=== PATIENT | female | born 1960 | race Caucasian/White ===

== ENCOUNTER 2022-01-16 15:20 | Emergency (ER) | payer OTHER, SELFPAY ==
[2022-01-16 15:45] VITALS: BP 179/81; PULSE 64; RESP 14; TEMP 36.6; O2SAT 99; BMI 24.4
[2022-01-16 16:02] LABS: Appearance Urine CLEAR; Color Urine YELLOW; Glucose Urine UA NEG (NEG); Leukocyte Esterase Urine NEG (NEG); Nitrite Urine NEG (NEG); PH 5.5 (5.0-8.0); UACC Culture Trigger NO; Urine Blood TRACE (NEG); Urine Ketones NEG (NEG); Urine Protein NEG (NEG-TRACE)
[2022-01-16 16:11] LABS: MANUAL DIFF FLAG NO
[2022-01-16 16:13] LABS: Basophils Absolute Auto 0.1 X10*3/uL (0.0-0.2); Eosinophils Absolute Auto 0.2 X10*3/uL (0.0-0.4); Eosinophils Percent Auto 1.8 % (0-4); Hematocrit 45.3 % (37.0-47.0); Hemoglobin 15.1 g/dl (12.0-16.0); Imm Gran Abs Auto 0.02 X10*3/uL (0.00-0.03); Imm Gran Pct Auto 0.2 % (0.0-0.4); Lymphocytes Absolute Auto 3.1 X10*3/uL (1.2-4.9); Lymphocytes Percent Auto 32.9 % (20-40); Mean Corpuscular HGB Conc 33.3 g/dl (31.0-35.0); Mean Corpuscular Hemoglobin 28.8 pg (27.0-33.0); Mean Corpuscular Volume 86.3 fL (80.0-98.0); Mean Platelet Volume 9.9 fL (9.4-12.3); Monocytes Absolute Auto 0.7 X10*3/uL (0.1-1.2); Monocytes Percent Auto 7.2 % (2-11); Neutrophils Absolute Auto 5.3 x10*3/uL (2.0-8.3); Neutrophils Percent Auto 56.9 % (45-73); Platelet Count 286 X10*3/uL (160-400); Red Blood Count 5.25 X10*6/uL (4.20-5.50); Red Cell Distribution Width 13.2 % (11.0-16.0); White Blood Count 9.3 X10*3/uL (4.8-10.8)
[2022-01-16 16:28] LABS: Anion Gap 16 (12-20); Blood Urea Nitrogen 33 mg/dL (9-16); Calcium 9.6 mg/dL (8.4-10.2); Carbon Dioxide 22 mmol/L (22-29); Chloride 107 mmol/L (96-108); Estimated Glomerular Filt Rate 48; Glucose Random 86 mg/dL (60-115); Potassium 4.1 mmol/L (3.3-5.1); Sodium 141 mmol/L (135-145)
[2022-01-16 16:30] LABS: RBC Urine 0-2 /HPF (0); Squamous Epithelial Cell Urine 2+ /LPF; Urine Talc Crystals TRACE /LPF; WBC Urine 0-2 /HPF (0-4)
[2022-01-16 17:59] LABS: Alanine Aminotransferase 18 U/L (0-31); Albumin Level 4.8 g/dL (3.5-5.0); Alkaline Phosphatase 111 U/L (39-117); Aspartate Amino Transferase 19 U/L (5-31); Bilirubin Direct 0.3 mg/dL (0.0-0.5); Bilirubin Total 0.7 mg/dL (0.0-1.0); Lipase 51 U/L (8-78)
[2022-01-16 18:16] VITALS: BP 149/74; PULSE 64; RESP 16; TEMP 36; O2SAT 100
[2022-01-16] MEDS: Ondansetron ODT 4 MG TAB.RAPDIS TRANSLINGU (18:41)
--- NOTE | 2022-01-16 18:45 | ED_ITS ---
HPI - Nausea/Vomiting/Diarrhea General Chief complaint: Nausea/Vomiting/Diarrhea Stated complaint: abdominal pain; vomiting Time Seen by Provider: 01/16/22 17:27 Source: patient Mode of arrival: ambulatory History of Present Illness HPI Narrative: 61-year-old female without significant past medical history presents for concerns regarding nausea, vomiting as well as multiple episodes of diarrhea since having coffee with [employer] on Tuesday morning. She denies any fever but states she has had some chills and has taken 3 COVID-19 test which have all been negative. Patient is concerned because she has had limited oral intake. Related Data Previous Rx's Medication Instructions Recorded ondansetron 4 mg disintegrating 4 mg PO Q8H PRN nausea and 01/16/22 tablet vomiting #7 tabs Allergies Allergy/AdvReac Type Severity Reaction Status Date / Time Unable to Assess Allergy Verified 01/16/22 17:28 Review of Systems Review of Systems: Pertinent positives and negatives as stated in HPI 10 point review of systems is otherwise negative. PMFSH Past Medical History Source: nursing notes reviewed Social History Social History Advance Directives: No Advance Directives Information Provided: No Physical Exam Vital Signs: Vital Signs: Last Vital Signs Temp 96.8 F 01/16/22 18:16 Pulse 64 01/16/22 18:16 Resp 16 01/16/22 18:16 BP 149/74 H 01/16/22 18:16 Pulse Ox 100 01/16/22 18:16 O2 Del Method 01/16/22 18:16 BMI result Body Mass Index 24.4 VITAL SIGNS: Reviewed. GENERAL: Well developed, well nourished, in no acute distress. HEAD: Normocephalic/atraumatic EYES: PERRLA, EOMI EARS: Ext canals without abnormality OROPHARYNX: no oral lesions noted, posterior pharynx clear, moist mucosa NECK: Supple, no adenopathy LUNGS: Normal breath sounds. No adventitious sounds or accessory muscle use. SpO2<100> CARDIOVASCULAR: Regular rate and rhythm without noted murmurs ABDOMEN: Soft, non-tender, non-distended with bowel sounds. MUSCULOSKELETAL: No tenderness, deformities, or effusions noted on gross inspection. EXTREMITIES: No cyanosis, clubbing or edema. SKIN: Inspection of the skin reveals no rashes NEUROLOGIC: Alert and oriented x 4. Strength and sensation to light touch were grossly intact x 4. Course Course Course Narrative: 61-year-old female with history and clinical presentation consistent with gastroenteritis likely viral etiology. Review of all investigations without significant findings other than elevated BUN. On review of all investigations there are no acute findings, to include negative COVID-19 test, patient did tolerate crackers and liquids and is otherwise stable for discharge home with instructions to use the antinausea medication and increase her water intake. She is otherwise discharged home in stable condition. MDM - Nausea/Vomiting/Diarrhea Lab Data Result diagrams: 01/16/22 16:03 01/16/22 16:03 Labs: Lab Results 01/16/22 01/16/22 01/16/22 Range/Units 15:56 16:03 16:03 WBC 9.3 (4.8-10.8) X10*3/uL RBC 5.25 (4.20-5.50) X10*6/uL Hgb 15.1 (12.0-16.0) g/dl Hct 45.3 (37.0-47.0) % MCV 86.3 (80.0-98.0) fL MCH 28.8 (27.0-33.0) pg MCHC 33.3 (31.0-35.0) g/dl RDW 13.2 (11.0-16.0) % Plt Count 286 (160-400) X10*3/uL MPV 9.9 (9.4-12.3) fL Immature Gran % (Auto) 0.2 (0.0-0.4) % Neut % (Auto) 56.9 (45-73) % Lymph % (Auto) 32.9 (20-40) % [place] % (Auto) 7.2 (2-11) % Eos % (Auto) 1.8 (0-4) % Baso % (Auto) 1.0 (0-2) % Lymph # (Auto) 3.1 (1.2-4.9) X10*3/uL [place] # (Auto) 0.7 (0.1-1.2) X10*3/uL Eos # (Auto) 0.2 (0.0-0.4) X10*3/uL Baso # (Auto) 0.1 (0.0-0.2) X10*3/uL Abs Immat Gran (auto) 0.02 (0.00-0.03) X10*3/uL Absolute Neuts (auto) 5.3 (2.0-8.3) x10*3/uL Absolute Nucleated RBC 0.000 (0.0-0.012) X10*3/uL Nucleated RBC % (auto) 0.0 (0.0-0.2) /100WBC Sodium 141 (135-145) mmol/L Potassium 4.1 (3.3-5.1) mmol/L Chloride 107 (96-108) mmol/L Carbon Dioxide 22 (22-29) mmol/L Anion Gap 16 (12-20) BUN 33 H (9-16) mg/dL Creatinine 1.15 (0.5-1.4) mg/dL Estim Creat Clear Calc 41.0 Estimated GFR 48 Random Glucose 86 (60-115) mg/dL Calcium 9.6 (8.4-10.2) mg/dL Total Bilirubin 0.7 (0.0-1.0) mg/dL Direct Bilirubin 0.3 (0.0-0.5) mg/dL AST 19 (5-31) U/L ALT 18 (0-31) U/L Alkaline Phosphatase 111 (39-117) U/L Total Protein 8.0 (6.5-8.0) g/dL Albumin 4.8 (3.5-5.0) g/dL Lipase 51 (8-78) U/L Urine Color YELLOW Urine Appearance CLEAR Urine pH 5.5 (5.0-8.0) Ur Specific [place] 1.020 (1.005-1.025) Urine Protein NEG (NEG-TRACE) MG/DL Urine Glucose (UA) NEG (NEG) MG/DL Urine Ketones NEG (NEG) MG/DL Urine Blood TRACE (NEG) Urine Nitrite NEG (NEG) Ur Leukocyte Esterase NEG (NEG) Urine RBC 0-2 (0) /HPF Urine WBC 0-2 (0-4) /HPF Ur Squamous Epith Cells 2+ /LPF Talc Crystals TRACE /LPF Urine Bacteria NONE /LPF COVID-19 ([facility]) (Negative) COVID-19 Clin Com 01/16/22 Range/Units 18:42 WBC (4.8-10.8) X10*3/uL RBC (4.20-5.50) X10*6/uL Hgb (12.0-16.0) g/dl Hct (37.0-47.0) % MCV (80.0-98.0) fL MCH (27.0-33.0) pg MCHC (31.0-35.0) g/dl RDW (11.0-16.0) % Plt Count (160-400) X10*3/uL MPV (9.4-12.3) fL Immature Gran % (Auto) (0.0-0.4) % Neut % (Auto) (45-73) % Lymph % (Auto) (20-40) % [place] % (Auto) (2-11) % Eos % (Auto) (0-4) % Baso % (Auto) (0-2) % Lymph # (Auto) (1.2-4.9) X10*3/uL [place] # (Auto) (0.1-1.2) X10*3/uL Eos # (Auto) (0.0-0.4) X10*3/uL Baso # (Auto) (0.0-0.2) X10*3/uL Abs Immat Gran (auto) (0.00-0.03) X10*3/uL Absolute Neuts (auto) (2.0-8.3) x10*3/uL Absolute Nucleated RBC (0.0-0.012) X10*3/uL Nucleated RBC % (auto) (0.0-0.2) /100WBC Sodium (135-145) mmol/L Potassium (3.3-5.1) mmol/L Chloride (96-108) mmol/L Carbon Dioxide (22-29) mmol/L Anion Gap (12-20) BUN (9-16) mg/dL Creatinine (0.5-1.4) mg/dL Estim Creat Clear Calc Estimated GFR Random Glucose (60-115) mg/dL Calcium (8.4-10.2) mg/dL Total Bilirubin (0.0-1.0) mg/dL Direct Bilirubin (0.0-0.5) mg/dL AST (5-31) U/L ALT (0-31) U/L Alkaline Phosphatase (39-117) U/L Total Protein (6.5-8.0) g/dL Albumin (3.5-5.0) g/dL Lipase (8-78) U/L Urine Color Urine Appearance Urine pH (5.0-8.0) Ur Specific [place] (1.005-1.025) Urine Protein (NEG-TRACE) MG/DL Urine Glucose (UA) (NEG) MG/DL Urine Ketones (NEG) MG/DL Urine Blood (NEG) Urine Nitrite (NEG) Ur Leukocyte Esterase (NEG) Urine RBC (0) /HPF Urine WBC (0-4) /HPF Ur Squamous Epith Cells /LPF Talc Crystals /LPF Urine Bacteria /LPF COVID-19 ([facility]) Negative (Negative) COVID-19 Clin Com See Note Discharge Plan Discharge Clinical Impression: Gastroenteritis, Food poisoning Patient Disposition: Home, Self-Care Instructions: Gastroenteritis (ED), Food Poisoning (ED), Nutrition Tips for Relief of Diarrhea (ED) Additional Instructions: 1. You have been sent home with medication that will control your nausea and you should take the opportunity to eat bland food, but more importantly drink plenty of water. 2. You have been provided with information regarding foods that can help you c ontrol your diarrhea. 3. Follow-up with primary care provider in next 2-3 days. Return to the ER for any worsening symptoms. Prescriptions: New ondansetron 4 mg tablet,disintegrating 4 mg PO Q8H PRN (Reason: nausea and vomiting) Qty: 7 0RF Referrals: Staci Chapman MD [Primary Care Provider] -
[2022-01-16 19:02] LABS: COVID-19 Test Negative (Negative); IDNOW Serial# 55D5AD1C
== END 2022-01-16 19:38 | disposition home or self-care (01) ==
PROVIDERS: Physician Assistant Medical; Emergency Provider Student in an Organized Health Care Education/Training Program; PCP Internal Medicine
DX: A05.9 Bacterial foodborne intoxication, unspecified (principal); Z20.822 Contact with and (suspected) exposure to COVID-19
CPT/HCPCS: 36415; 80048; 80076; 81001; 81003; 83690; 85025; 87635; 99283; 99284

== ENCOUNTER 2022-05-16 12:33 | Emergency (ER) | payer OTHER, SELFPAY ==
--- NOTE | ~2022-05-16 | XR_ITS ---
EXAMINATION: XR CHEST CLINICAL INFORMATION: Cough, chest discomfort with coughing COMPARISON: None TECHNIQUE: 2 views of the chest were obtained. FINDINGS: No airspace consolidation. No pleural effusion or pneumothorax. Normal cardiomediastinal silhouette. Slightly prominent pulmonary vascular markings. No evidence pulmonary edema. No acute osseous injury. 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 XR/XR chest 2V IMPRESSION: 1. No airspace consolidation or pleural effusions.
[2022-05-16 12:57] VITALS: BP 152/95; PULSE 63; RESP 18; TEMP 35.9; O2SAT 99; BMI 23.2
--- NOTE | 2022-05-16 12:57 | ED_ITS ---
HPI - URI/Sore Throat General Chief Complaint: Dental/Oral <Vania Vargas NP - Last Filed: 05/16/22 13:00> Stated Complaint: L ear pain/Sore throat/Upper chest pressure <Vania Vargas NP - Last Filed: 05/16/22 13:00> Time Seen by Provider: 05/16/22 14:03 <Vania Vargas NP - Last Filed: 05/16/22 13:00> Source: patient <MARLEE Escudero - Last Filed: 05/16/22 18:35> Mode of arrival: ambulatory <MARLEE Escudero Last Filed: 05/16/22 18:35> Limitations: no limitations <MARLEE Escudero Last Filed: 05/16/22 18:35> History of Present Illness HPI Narrative: 7-year-old female presents to ED for left ear pain, sore throat, and coughing for couple weeks. Patient denies any neck swelling, coughing up blood, drooling, change in voice, leg swelling, calf pain, chest pain inspiration, shortness of breath. <MARLEE Escudero Last Filed: 05/16/22 18:35> Related Data Home Medications: Previous Rx's Medication Instructions Recorded ondansetron 4 mg disintegrating 4 mg PO Q8H PRN nausea and 01/16/22 tablet vomiting #7 tabs amoxicillin 875 mg-potassium 1 tab PO Q12H 10 days #20 tabs 05/16/22 clavulanate 125 mg tablet naproxen 500 mg tablet 500 mg PO BID PRN pain 7 days #14 05/16/22 tabs <Vania Vargas NP - Last Filed: 05/16/22 13:00> Allergies/Adverse Reactions: Allergies Allergy/AdvReac Type Severity Reaction Status Date / Time No Known Allergies Allergy Verified 05/16/22 12:57 <Vania Vargas NP - Last Filed: 05/16/22 13:00> Review of Systems Review of Systems: Cough <MARLEE Escudero Last Filed: 05/16/22 18:35> Yes all other systems are reviewed and are negative <MARLEE Escudero Last Filed: 05/16/22 18:35> [facility] Social History Social History: Social History Advance Directives: No Advance Directives Information Provided: No <Vania Vargas NP - Last Filed: 05/16/22 13:00> Physical Exam Vital Signs: Vital Signs: Last Vital Signs Temp 96.6 F L 05/16/22 12:57 Pulse 63 05/16/22 12:57 Resp 18 05/16/22 12:57 BP 152/95 H 05/16/22 12:57 Pulse Ox 99 05/16/22 12:57 O2 Del Method 05/16/22 12:57 BMI result Body Mass Index 23.2 <Vania Vargas NP - Last Filed: 05/16/22 13:00> Vital Signs: Last Vital Signs Temp 96.6 F L 05/16/22 12:57 Pulse 63 05/16/22 12:57 Resp 18 05/16/22 12:57 BP 152/95 H 05/16/22 12:57 Pulse Ox 99 05/16/22 12:57 O2 Del Method 05/16/22 12:57 BMI result Body Mass Index 23.2 <MARLEE Escudero - Last Filed: 05/16/22 18:35> Const: General: cooperative, healthy appearing, comfortable, no acute distress, well developed, alert, awake and Physically active <MARLEE Escudero - Last Filed: 05/16/22 18:35> Orientation/consciousness: oriented to person, oriented to place, oriented to time and patient oriented x3 <MARLEE Escudero - Last Filed: 05/16/22 18:35> HEENT: Head: Yes normal to inspection, Yes No palpable skull fracture present, Yes normocephalic, Yes atraumatic and No abrasion <MARLEE Escudero Last Filed: 05/16/22 18:35> Ears: hearing grossly normal bilaterally, external ears normal, TM normal on the right, EAC's normal, mastoids normal, no periauricular adenopathy and TM abnormal erythematous on the left <MARLEE Escudero Last Filed: 05/16/22 18:35> Eyes: General: appearance normal, both eyes and all related structures <MARLEE Escudero Last Filed: 05/16/22 18:35> Neck: Neck: Yes normal visual inspection, Yes full ROM, Yes no lymphadenopathy, Yes no meningeal signs, Yes trachea midline, Yes supple, No anterior neck swelling and Yes tender <Ephraim Og, PA Last Filed: 05/16/22 18:35> Chest: Chest palpation & inspection: normal inspection of the chest and normal palpation of entire chest wall <Ephraim Og, PA Last Filed: 05/16/22 18:35> Resp: Effort & Inspection: normal respiratory effort and able to speak in complete sentences <MARLEE Escudero Last Filed: 05/16/22 18:35> Auscultation: clear to auscultation bilaterally <MARLEE Escudero Filed: 05/16/22 18:35> Cardio: Jugular venous distension: no JVD <MARLEE Escudero Last Filed: 05/16/22 18:35> Heart sounds: S1 normal heart sound present and S2 normal heart sound present <MARLEE Escudero Last Filed: 05/16/22 18:35> GI: Inspection: Yes normal to inspection and No abdominal wall ecchymosis <MARLEE Escudero Last Filed: 05/16/22 18:35> Palpation (GI): Soft to palpation, not firm, nontender, no guarding and not rigid <MARLEE Escudero Last Filed: 05/16/22 18:35> : General: No CVA tenderness and Yes no CVA tenderness <MARLEE Escudero Last Filed: 05/16/22 18:35> Back/Spine/Pelvis: Back: no CVA tenderness, No CVA tenderness and No back tenderness <MARLEE Escudero Last Filed: 05/16/22 18:35> Skin: General skin exam: no rashes or lesions noted and elasticity normal <MARLEE Escudero Last Filed: 05/16/22 18:35> Neuro: General: oriented to person, oriented to place, oriented to time, patient oriented x3, gait normal, tone normal and no meningeal signs <MARLEE Escudero Last Filed: 12/04/22 18:35> Cranial nerves: Yes CN's II-XII intact bilaterally <MARLEE Escudero - Last Filed: 05/16/22 18:35> Cognition (Neuro): normal cognition <MARLEE Escudero - Last Filed: 05/16/22 18:35> Gait exam (Neuro): Normal gait present <MARLEE Escudero - Last Filed: 05/16/22 18:35> Motor exam (neuro): 5/5 motor strength present throughout <MARLEE Escudero - Last Filed: 05/16/22 18:35> Sensory Exam: Normal double simultaneous stimulation for sensation <MARLEE Escudero - Last Filed: 05/16/22 18:35> Extrem: Other: Lower extremity negative for swelling, pitting edema, calf tenderness <MARLEE Escudero - Last Filed: 05/16/22 18:35> General: Yes normal to inspection and Yes full ROM <MARLEE Escudero - Last Filed: 05/16/22 18:35> Psych: Appearance: grossly normal, well kempt and not disheveled <MARLEE Escudero - Last Filed: 05/16/22 18:35> Course Course Course Narrative: This is a rapid medical exam. Deferred additional HPI, ROS, PE to primary provider here with sore throat, cough, ear pain, chest discomfort since March 2022. Will send testing for flu/covid/rsv, rapid strep, CXR. VSS. <Vania Vargas NP - Last Filed: 05/16/22 13:00> Reevaluation(s) Reevaluation #1: COVID, RSV, influenza strep negative. Chest x-ray normal. Will discharge with antibiotics for ear pain. Left otitis media <MARLEE Escudero - Last Filed: 05/16/22 18:35> Time: 15:17 <MARLEE Escudero - Last Filed: 05/16/22 18:35> MDM - URI/Sore Throat MDM Narrative Medical decision making narrative: Otitis media <MARLEE Escudero Last Filed: 05/16/22 18:35> Lab Data Labs: Lab Results 05/16/22 05/16/22 Range/Units 13:03 13:22 Influenza Type A (PCR) NEGATIVE (Negative) Influenza Type B (PCR) NEGATIVE (Negative) RSV RNA Qual (PCR) NEGATIVE (Negative) SARS-CoV-2 RNA (RT-PCR) NEGATIVE (Negative) S. pyogenes GrpA NELLIE Negative (Negative) <Vania Vargas NP - Last Filed: 05/16/22 13:00> Lab Results 05/16/22 05/16/22 Range/Units 13:03 13:22 Influenza Type A (PCR) NEGATIVE (Negative) Influenza Type B (PCR) NEGATIVE (Negative) RSV RNA Qual (PCR) NEGATIVE (Negative) SARS-CoV-2 RNA (RT-PCR) NEGATIVE (Negative) S. pyogenes GrpA NELLIE Negative (Negative) <MARLEE Escudero - Last Filed: 05/16/22 18:35> Discharge Plan Discharge Clinical Impression: Otitis media <Vania Vargas NP - Last Filed: 05/16/22 13:00> Patient Disposition: Home, Self-Care <Vania Vargas NP - Last Filed: 05/16/22 13:00> Instructions: Ear Infection (ED) <Vania Vargas NP - Last Filed: 05/16/22 13:00> Additional Instructions: RSV, flu, COVID, and chest x-ray normal. He will be discharged with antibiotics for infection. Please follow-up with the primary care provide. Return to ED for any neck swelling, redness, fever, chills, coughing up blood, headache, dizziness, ear drainage, ear pain worsening, blood from the ear, or any other concerning symptoms. <Vania Vargas NP - Last Filed: 05/16/22 13:00> Prescriptions: New amoxicillin-pot clavulanate 875-125 mg tablet 1 tab PO Q12H 10 Days Qty: 20 0RF naproxen 500 mg tablet 500 mg PO BID PRN (Reason: pain) 7 Days Qty: 14 0RF No Action ondansetron 4 mg tablet,disintegrating 4 mg PO Q8H PRN (Reason: nausea and vomiting) Qty: 7 0RF <Vania Vargas NP - Last Filed: 05/16/22 13:00> Stand Alone Forms: Work/School Release <Vania Vargas NP - Last Filed: 05/16/22 13:00> Interventions: ED Discharge Assessment Last Done: 05/16/22 15:54 <Vania Vargas NP - Last Filed: 05/16/22 13:00> Discharge Date/Time: 05/16/22 15:55 <Vania Vargas NP - Last Filed: 05/16/22 13:00> Print Language: Trinidadian <Vania Vargas NP - Last Filed: 05/16/22 13:00>
[2022-05-16 13:48] LABS: IDNOW Serial# 08D9AD1C; Strep A Nucleic Acid Negative (Negative)
[2022-05-16 13:56] LABS: Influenza A PCR NEGATIVE (Negative); Influenza B PCR NEGATIVE (Negative); Resp Syncy Virus RNA Qual PCR NEGATIVE (Negative); SARS COV2 PCR INHOUSE NEGATIVE (Negative)
--- NOTE | 2022-05-16 14:45 | ED_ITS ---
HPI - General Adult General Chief complaint: Dental/Oral Stated complaint: L ear pain/Sore throat/Upper chest pressure Time Seen by Provider: 05/16/22 14:03 Source: patient Mode of arrival: ambulatory Limitations: no limitations History of Present Illness HPI narrative: Left ear pain sore throat coughing and chest pain when she coughs. Related Data Previous Rx's Medication Instructions Recorded ondansetron 4 mg disintegrating 4 mg PO Q8H PRN nausea and 01/16/22 tablet vomiting #7 tabs amoxicillin 875 mg-potassium 1 tab PO Q12H 10 days #20 tabs 05/16/22 clavulanate 125 mg tablet naproxen 500 mg tablet 500 mg PO BID PRN pain 7 days #14 05/16/22 tabs Allergies Allergy/AdvReac Type Severity Reaction Status Date / Time No Known Allergies Allergy Verified 05/16/22 12:57 [facility] Social History Social History Advance Directives: No Advance Directives Information Provided: No Physical Exam ED Vital Signs: Vital Signs - 24 hr 05/16/22 12:57 Temperature 96.6 F L Pulse Rate 63 Respiratory Rate 18 Blood Pressure 152/95 H Pulse Oximetry 99 Oxygen Delivery Method Room Air BMI result Body Mass Index 23.2 Medical Decision Making Lab Data Labs: Lab Results 05/16/22 05/16/22 Range/Units 13:03 13:22 Influenza Type A (PCR) NEGATIVE (Negative) Influenza Type B (PCR) NEGATIVE (Negative) RSV RNA Qual (PCR) NEGATIVE (Negative) SARS-CoV-2 RNA (RT-PCR) NEGATIVE (Negative) S. pyogenes GrpA NELLIE Negative (Negative) Discharge Plan Discharge Clinical Impression: Otitis media Patient Disposition: Home, Self-Care Instructions: Ear Infection (ED) Additional Instructions: RSV, flu, COVID, and chest x-ray normal. He will be discharged with antibiotics for infection. Please follow-up with the primary care provide. Return to ED for any neck swelling, redness, fever, chills, coughing up blood, headache, dizziness, ear drainage, ear pain worsening, blood from the ear, or any other concerning symptoms. Prescriptions: New amoxicillin-pot clavulanate 875-125 mg tablet 1 tab PO Q12H 10 Days Qty: 20 0RF naproxen 500 mg tablet 500 mg PO BID PRN (Reason: pain) 7 Days Qty: 14 0RF No Action ondansetron 4 mg tablet,disintegrating 4 mg PO Q8H PRN (Reason: nausea and vomiting) Qty: 7 0RF Stand Alone Forms: Work/School Release Interventions: ED Discharge Assessment Last Done: 05/16/22 15:54 Discharge Date/Time: 05/16/22 15:55 Print Language: Kinyarwanda
== END 2022-05-16 15:55 | disposition home or self-care (01) ==
PROVIDERS: Nurse Practitioner Family; Emergency Provider Emergency Medicine; PCP Internal Medicine
DX: H66.92 Otitis media, unspecified, left ear (principal); R07.89 Other chest pain; R05.9 Cough, unspecified; Z20.822 Contact with and (suspected) exposure to COVID-19; Z79.899 Other long term (current) drug therapy
CPT/HCPCS: 0241U; 36415; 71046; 87651; 99282; 99283